=== PATIENT | male | born 1970 | race Caucasian/White ===

== ENCOUNTER 2021-02-16 18:23 | Emergency (ER) | payer OTHER ==
[~2021-02-16] VITALS: Ht 175.3 cm; Wt 118.2 kg
[2021-02-16] MEDS ORDERED: ONDANSETRON PF 4 MG/2 ML VIAL. IVP ONE (18:30)
[2021-02-16] MEDS ORDERED: IV NORMAL SALINE 1,000ML 1,000 ML IV ONE (18:30)
[2021-02-16] MEDS ORDERED: IOHEXOL 300 MG/ML 75 ML VIAL. IV ONE (18:45)
--- NOTE | 2021-02-16 18:47 | PHYS DOC ---
Past History Past Medical History: Arthritis General Adult EDM: Chief Complaint: ALTERED MENTAL STATUS HPI: HPI: 50-year-old male presents via EMS with syncopal episode and right lower quadrant abdominal pain. Patient was at home watching TV when he took some THC Gummies and then passed out. Patient states he has been having right lower quadrant abdominal pain for the last couple of days. He was supposed to be his doctor at the [facility] tomorrow because of this pain. He denies history of syncopal episodes. Denies chest pain or shortness of breath. The patient is not very helpful in answering questions. Review of Systems: Review of Systems: Constitutional: Denies fever or chills Eyes: Denies change in visual acuity HENT: Denies nasal congestion or sore throat Respiratory: Denies cough or shortness of breath Cardiovascular: Denies chest pain or edema GI: RLQ abdominal pain. Denies nausea, vomiting, bloody stools or diarrhea : Denies dysuria Musculoskeletal: Denies back pain or joint pain Integument: Denies rash Neurologic: Syncope. Denies headache, focal weakness or sensory changes Endocrine: Denies polyuria or polydipsia Lymphatic: Denies swollen glands Psychiatric: Denies depression or anxiety Current Medications: Current Meds: Current Medications Medications (Trade) Dose Ordered Sig/David Start Time Stop Time Status Last Admin Dose Admin Ondansetron HCl (Zofran) 4 mg 1X ONCE 02/16/21 18:30 02/16/21 18:31 UNV Sodium Chloride 1,000 ml @ 1,000 mls/hr 1X ONCE 02/16/21 18:30 02/16/21 19:29 UNV Allergies: Allergies: Allergies Coded Allergies Type Severity Reaction Last Updated Verified latanoprost Allergy Unknown 02/16/21 Yes Physical Exam: PE: Constitutional: Well developed, well nourished, obese, no acute distress, non- toxic appearance. [] HENT: Normocephalic, atraumatic, bilateral external ears normal, oropharynx moist, no oral exudates, nose normal. [] Eyes: PERRLA, EOMI, conjunctiva normal, no discharge. [] Neck: Normal range of motion, no tenderness, supple, no stridor. [] Cardiovascular: Heart rate regular rhythm, no murmur [] Lungs & Thorax: Bilateral breath sounds clear to auscultation [] Abdomen: Bowel sounds normal, soft, no tenderness, no masses, no pulsatile masses. [] Skin: Warm, dry, no erythema, no rash. [] Back: No tenderness, no CVA tenderness. [] Extremities: No tenderness, no cyanosis, no clubbing, ROM intact, no edema. [] Neurologic: Alert and oriented X 3, normal motor function, normal sensory function, no focal deficits noted. [] Psychologic: Affect dramatic, judgement normal, mood minimally cooperative. [] EKG: EKG: Sinus rhythm, rate 106, normal axis, no ST elevation or depression. [] Radiology/Procedures: Radiology/Procedures: [] Impressions: CT ABDOMEN+PELVIS W History: Reason: RLQ pain, syncope, chest and abdomen pain Omni 300 75cc / Spl. Instructions: / History: Technique: After the administration of intravenous contrast, CT imaging was performed of the abdomen and pelvis. Multiplanar images are reviewed. Exposure: One or more of the following individualized dose reduction techniques were utilized for this examination: 1. Automated exposure control 2. Adjustment of the mA and/or kV according to patient size 3. Use of iterative reconstruction technique. Comparison: None Findings: Lower chest: Mild left lower lobe and lingular atelectasis. Abdomen and pelvis: Hepatic steatosis. Right hepatic lobe hypodensity measures 0.8 cm. The spleen, adrenal glands, and pancreas are unremarkable. Contracted gallbladder. No biliary ductal dilatation. No hydronephrosis. No renal calculus. Normal appearance of the urinary bladder. Normal appendix. No evidence of bowel obstruction. No pathologic lymphadenopathy. No ascites. Decompressed mid colon. Small fat-containing bilateral inguinal hernias, left greater than right. Small fat-containing umbilical hernia. Bones: No pathologic osseous lesions. Impression: 1. No acute abdominal or pelvic pathology. 2. Small right hepatic lobe hypodensity, likely cyst or hemangioma in the absence of concern for malignancy. 3. Hepatic steatosis. Electronically signed by: Stan Foss DO (02/16/2021 8:45 PM) [facility] DICTATED AND SIGNED BY: STAN FOSS DO DATE: 02/16/212038 CC: BRONWYN BEE DO ~MTH0 0 XR CHEST 1V History: Reason: Syncope, chest and abdomen pain / Spl. Instructions: / History: Comparison: None. Findings: Mild linear left basilar atelectasis. No consolidation or pleural effusion. Normal heart size. No pneumothorax. Impression: 1. Mild linear left basilar atelectasis. Electronically signed by: Stan Foss DO (02/16/2021 8:35 PM) [facility] DICTATED AND SIGNED BY: STAN FOSS DO DATE: 02/16/212033 CC: BRONWYN BEE DO ~MTH0 0 Heart Score: C/O Chest Pain: No Risk Factors: Risk Factors: DM, Current or recent (<one month) smoker, HTN, HLP, family history of CAD, obesity. Risk Scores: Score 0 - 3: 2.5% MACE over next 6 weeks - Discharge Home Score 4 - 6: 20.3% MACE over next 6 weeks - Admit for Clinical Observation Score 7 - 10: 72.7% MACE over next 6 weeks - Early Invasive Strategies Course & Med Decision Making: Course & Med Decision Making Pertinent Labs and Imaging studies reviewed. (See chart for details) The patient's labs are unremarkable. His CT of the abdomen pelvis is negative for acute findings. I suspect his syncopal event has much more to do with the marijuana Gummies than anything else. His drug screen is positive for marijuana. His urinalysis is negative for infection. He is stable for disch arge at this time. [] Jose David Disclaimer: Jose David Disclaimer: This electronic medical record was generated, in whole or in part, using a voice recognition dictation system. Departure Departure: Impression: Primary Impression: Right lower quadrant abdominal pain Additional Impression: Marijuana use Disposition: HOME / SELF CARE / HOMELESS Condition: STABLE Patient Instructions: Abdominal Pain, [id number] BRONWYN BEE DO Feb 16, 2021 18:47
[2021-02-16] MEDS ORDERED: KETOROLAC 30 MG/ML VIAL. IVP ONE (19:00)
--- NOTE | 2021-02-16 20:38 | RAD ---
XR CHEST 1V History: Reason: Syncope, chest and abdomen pain / Spl. Instructions: / History: Comparison: None. Findings: Mild linear left basilar atelectasis. No consolidation or pleural effusion. Normal heart size. No pne umothorax. Impression: 1. Mild linear left basilar atelectasis. Electronically signed by: Stan Shields DO (02/16/2021 8:35 PM) [facility] [place]
--- NOTE | 2021-02-16 20:47 | RAD ---
CT ABDOMEN+PELVIS W History: Reason: RLQ pain, syncope, chest and abdomen pain Omni 300 75cc / Spl. Instructions: / Hist ory: Technique: After the administration of intravenous contrast, CT imaging was performed of the abdomen and pelvis. Multiplanar images are reviewed. Exposure: One or more of the following individualized dose reduction techniques were utilized for thi s examination: 1. Automated exposure control 2. Adjustment of the mA and/or kV according to patient size 3. Use of iterative reconstruction technique. Comparison: None Findings: Lower chest: Mild left lower lobe and lingular atelectasis. Abdomen and pelvis: Hepatic steatosis. Right hepatic lobe hypodensity measures 0.8 cm. The spleen, ad renal glands, and pancreas are unremarkable. Contracted gallbladder. No biliary ductal dilatation. No hydronephrosis. No renal calculus. Normal appearance of the urinary bladder. Normal appendix. No evidence of bowel obstruction. No pathologic lymphadenopathy. No ascites. Decompr essed mid colon. Small fat-containing bilateral inguinal hernias, left greater than right. Small fat- containing umbilical hernia. Bones: No pathologic osseous lesions. Impression: 1. No acute abdominal or pelvic pathology. 2. Small right hepatic lobe hypodensity, likely cyst or hemangioma in the absence of concern for mal ignancy. 3. Hepatic steatosis. Electronically signed by: Stan Shields DO (02/16/2021 8:45 PM) [facility]
[2021-02-16 21:44] LABS: BASO % 0 % (0-3); EOS # 0.1 x10^3/uL (0.0-0.7); EOS % 1 % (0-3); HEMOGLOBIN 12.7 g/dL (13.0-17.5); LYMPH # 1.3 x10^3/uL (1.0-4.8); LYMPH % 15 % (24-48); MEAN CORPUSCULAR HEMOGLOBIN 31 pg (25-35); MEAN CORPUSCULAR HGB CONC 34 g/dL (31-37); MEAN CORPUSCULAR VOLUME 90 fL (79-100); MONO # 0.6 x10^3/uL (0.0-1.1); MONO % 7 % (0-9); NEUT % 77 % (31-73); PLATELET COUNT 229 x10^3/uL (140-400); RED BLOOD COUNT 4.11 x10^6/uL (4.30-5.70); RED CELL DISTRIBUTION WIDTH 13.5 % (11.5-14.5)
[2021-02-16 21:48] LABS: CALCIUM 8.3 mg/dL (8.5-10.1); CREATININE 1.2 mg/dL (0.7-1.3); GFR 63.8; POTASSIUM 4.2 mmol/L (3.5-5.1)
[2021-02-16 21:55] LABS: ALBUMIN 3.5 g/dL (3.4-5.0); ALBUMIN/GLOBULIN RATIO 1.5 (1.0-1.7); TOTAL BILIRUBIN 0.2 mg/dL (0.2-1.0); TOTAL PROTEIN 5.9 g/dL (6.4-8.2)
[2021-02-16 21:57] LABS: BARBITURATES NEG (NEG); BENZODIAZEPINES NEG (NEG); CANNABINOIDS POS (NEG); COCAINE NEG (NEG); METHADONE NEG (NEG); OPIATES NEG (NEG); PHENCYCLIDINE NEG (NEG)
[2021-02-16 22:02] LABS: AMPHETAMINE/METHAMPHETAMINE NEG (NEG)
[2021-02-16 22:07] LABS: BILIRUBIN,URINE NEG (NEG); CLARITY,URINE CLEAR; COLOR,URINE YELLOW; GLUCOSE,URINE NEG (NEG); NITRITE,URINE NEG (NEG); RBC,URINE 0 /HPF (0-2); UROBILINOGEN,URINE 0.2 mg/dL (0.2 mg/dL)
[2021-02-16 22:08] LABS: BACTERIA,URINE FEW /HPF (0-FEW); SQUAMOUS EPITHELIAL CELL,UR OCC /LPF; WBC,URINE OCC /HPF (0-4)
[2021-02-16 22:13] LABS: INFLUENZA A PATIENT NEGATIVE (NEGATIVE); INFLUENZA B PATIENT NEGATIVE (NEGATIVE)
[2021-02-16] MEDS ORDERED: HYDROcodone/APAP 5/325MG 1 TAB TABLET PO ONE (23:00)
[2021-02-16 23:30] VITALS: BP 118/64
--- NOTE | 2021-02-17 06:57 | EKG ---
[address] [address] Test Date: 2021-02-16 Test Time: 18:27:23 Pat Name: HUBERT BARRIENTOS Department: Room: Gender: M Park Interpreter: MADAI : 1970 Requested By: BRONWYN BEE Order Number: [id number] Reading MD: Giuseppe Perez Measurements Intervals [place] Rate: 106 P: 36 NM: 146 QRS: 20 QRSD: 78 T: 22 QT: 332 QTc: 443 Interpretive Statements SINUS TACHYCARDIA LEFT ATRIAL ABNORMALITY ABNORMAL ECG RI6.02 No previous ECG available for comparison Electronically Signed On 02-18-2021 15:03:46 CLINICAL LABORATORY MEDICAL DIRECTOR by Giuseppe Perez
== END 2021-02-16 22:33 | disposition home or self-care (01) ==
LOC: ER 18:23
DX: R10.31 Right lower quadrant pain (principal); R55 Syncope and collapse; M19.90 Unspecified osteoarthritis, unspecified site; Z20.822 Contact with and (suspected) exposure to COVID-19; Z88.8 Allergy status to other drugs, medicaments and biological substances
CPT/HCPCS: 36415; 71045; 74177; 80053; 80307; 81001; 84484; 85025; 87804; 93005; 96361; 96374; 96375; 99285; C9803; J1885; J2405; J7030; Q9967; U0003